=== PATIENT | female | born 1970 | race Caucasian/White ===

== ENCOUNTER 2017-02-24 17:16 | Emergency (ER) | payer OTHER ==
[~2017-02-24] VITALS: Ht 157.5 cm; Wt 71.5 kg
[~2017-02-24 17:16] MED LIST: CYCL-319 PO; HYDR-3498 PO; NAPR-260 PO
[2017-02-24 17:19] VITALS: Ht 157.5 cm; Wt 71.5 kg
--- NOTE | 2017-02-24 18:42 | ERD ---
ER Documentation Chief Complaint Date/Time DATE: 02/24/17 TIME: 18:39 Chief Complaint Complains of a sorethroat x 3 days HPI This is a 46-year-old female presents to the ER with a sore throat for the last 3 days. Patient states she has very painful swallowing and she feels as if there is something in her throat. Patient denies swelling any foreign bodies. She denies any chest pain, shortness of breath. Patient is able to swallow, however it is painful. Had any choking episodes. She does not have any fevers or chills. She does have a runny nose, however does not have a cough. ROS 12 point review of systems was done, all negative except per HPI. Medications Home Meds Active Scripts Ibuprofen* (Motrin*) 600 Mg Tab, 600 MG PO Q6, #30 TAB Prov:MAGDALENA LOYA 02/24/17 Naproxen* (Naprosyn*) 500 Mg Tablet, 500 MG PO BID Y for PAIN AND/OR INFLAMMATION, #20 TAB Prov:MARTINLARY DO 12/26/15 Cyclobenzaprine Hcl* (Cyclobenzaprine Hcl*) 10 Mg Tablet, 10 MG PO TID, #15 TAB Prov:MARTINLARY DO 12/26/15 Hydrocodone Bit-Acetaminophen* ([place]*) 5-325 Mg Tab, 1 TAB PO Q6 Y for PAIN, # 7 TAB Prov:LARY SALAZAR 12/26/15 Reported Medications [None] No Conflict Check 11/15/12 Allergies Allergies: Coded Allergies: Penicillins (Verified Allergy, Unknown, 11/15/12) PMhx/Soc Medical and Surgical Hx: pt denies Medical Hx History of Surgery: Yes (C -SECTION x1, tubal ligation.) Anesthesia Reaction: No Hx Neurological Disorder: No Hx Respiratory Disorders: No Hx Cardiac Disorders: No Hx Psychiatric Problems: No Hx Miscellaneous Medical Probl: No Hx Alcohol Use: No Hx Substance Use: No Hx Tobacco Use: No (COFFEE) Physical Exam Vitals Physical Exam GENERAL: The patient is well-developed, well-nourished, in no acute distress. NECK: Cervical spine is non tender with no step off. Supple, no nuchal rigidity HEENT: Atraumatic. Pupils equal, round and reactive to light. Extraocular muscles are grossly intact. Conjunctivae pink, no discharge. Bilateral tympanic membranes are clear with no evidence of erythema, effusion or dulling of the light reflex. Tonsilar erythema with no exudates or uvular deviation. Clear rhinorrhea. RESPIRATORY: Clear to auscultation bilaterally. There are no rales, wheezes or rhonchi. HEART: Regular rate and rhythm. No murmurs, clicks, rubs or gallops. EXTREMITIES: No clubbing or cyanosis. Full range of motion. Grossly neurovascularly intact. NEUROLOGIC: Alert and oriented. Cranial nerves II through XII are intact. SKIN: There is no rash. The skin is warm and dry. Procedures/MDM This is a 46-year-old female presents to the ER complaining of sore throat and" foreign body sensation in throat." Did have some erythema of the throat, likely viral in etiology. Suspicion for retropharyngeal abscess or peritonsillar abscess is low. Patient did not have any uvular deviation or kissing tonsils on physical examination. In regards to patient's foreign body sensation, there is no evidence of foreign body on soft tissue neck x-ray. Patient is comfortably sitting in exam room with no evidence of respiratory distress or stridor. Patient needs to follow-up with her primary care doctor within 1-2 days return to ER sooner if symptoms worsen. My medical decision making shared with the patient she understands and agrees with plan. Departure Diagnosis: Primary Impression: Sore throat Condition: Stable MAGDALENA LOYA Feb 24, 2017 18:42
--- NOTE | 2017-02-24 19:26 | RADRPT ---
PROCEDURE: Soft tissue of the neck CLINICAL INDICATION: Foreign body sensation and pain. TECHNIQUE: Single lateral view of the neck were performed. COMPARISON: None FINDINGS: Unremarkable pharyngeal structures. Normal oral cavity soft tissues. Unremarkable endolaryngeal stru ctures. Normal soft tissues. No soft tissue swelling. No mass identified. No foreign body identified . Normal osseous structures. Normal bony alignment. No fracture identified. IMPRESSION: No evident retained radiopaque or radiolucent foreign body over the soft tissues of the neck. RPTAT: [facility] Physician Angela Date Time Electronically viewed and signed by Physician Angela on 02/24/2017 19:25 RS/
[2017-02-24] MEDS ORDERED: IBUP-1542 PO (19:50)
[2017-02-24 22:09] VITALS: BP 122/70; PULSE 79; RESP 18; TEMP 98.5
== END 2017-02-24 22:10 | disposition home or self-care (01) ==
LOC: FTE 17:16
DX: J02.9 Acute pharyngitis, unspecified (principal)
CPT/HCPCS: 70360; 87880; Z7502

== ENCOUNTER 2018-10-10 09:32 | Emergency (ER) | payer OTHER ==
[~2018-10-10] VITALS: Ht 154.9 cm; Wt 71.0 kg
[~2018-10-10 09:32] MED LIST changes: -CYCL-319 PO; +CYCL10TA7 PO; +IBUP-1542 PO; -NAPR-260 PO; +NAPR-985 PO
[2018-10-10 09:36] VITALS: Ht 154.9 cm; Wt 71.0 kg
[2018-10-10] MEDS ORDERED: BENZONATATE 100 MG CAP PO ONE (10:30)
[2018-10-10] MEDS ORDERED: IBUPROFEN 800 MG TAB PO ONE (10:30)
[2018-10-10] MEDS ORDERED: IBUP-1542 PO (10:34)
[2018-10-10] MEDS ORDERED: BENZ-6 PO (10:34)
--- NOTE | 2018-10-10 10:36 | ERD ---
ER Documentation Chief Complaint Chief Complaint fever , cough , headache , chest hurts with coughing since monday HPI Patient is a 48-year-old female with diabetes who presents with a cough. The patient said that she has pressure in her chest with cough. She feels tired. She has headache and congestion. Her symptoms have been there for about 1 month. It comes and goes. She has had no fevers. She tried Panadol. Upon review of old medical record the patient has multiple visits with various complaints. Her primary doctor Dr. [place]. ROS All systems reviewed and are negative except as per history of present illness. Medications Home Meds Active Scripts Benzonatate* (Tessalon Per[place]*) 100 Mg Capsule, 100 MG PO Q8H PRN for COUGH, #30 CAP Prov:TANI HAYES MD 10/10/18 Ibuprofen* (Motrin*) 600 Mg Tab, 600 MG PO Q6H PRN for PAIN AND OR ELEVATED TEMP, #30 TAB Prov:TANI HAYES MD 10/10/18 Reported Medications Ergocalciferol (Vitamin D2) (VITAMIN D2) 50,000 Unit Capsule, 85902 UNIT PO Q7D, CAP 10/10/18 Lisinopril* (Lisinopril*) 2.5 Mg Tablet, 2.5 MG PO DAILY, #30 TAB 10/10/18 Atorvastatin Calcium (Atorvastatin Calcium) 10 Mg Tablet, 10 MG PO QHS, #30 TAB 10/10/18 Metformin Hcl* (Metformin Hcl*) 500 Mg Tablet, 500 MG PO WITH BREAKFAST, #30 TAB 10/10/18 Discontinued Reported Medications [None] No Conflict Check 11/15/12 Discontinued Scripts Ibuprofen* (Motrin*) 600 Mg Tab, 600 MG PO Q6, #30 TAB Prov:MAGDALENA LOYA 02/24/17 Naproxen* (Naprosyn*) 500 Mg Tablet, 500 MG PO BID PRN for PAIN AND/OR INFLAMMATION, #20 TAB Prov:LARY SALAZAR DO 12/26/15 Cyclobenzaprine Hcl* (Cyclobenzaprine Hcl*) 10 Mg Tablet, 10 MG PO TID, #15 TAB Prov:LARY SALAZAR DO 12/26/15 Hydrocodone Bit-Acetaminophen* ([place]*) 5-325 Mg Tab, 1 TAB PO Q6 PRN for PAIN, #7 TAB Prov:LARY SALAZAR DO 12/26/15 Allergies Allergies: Coded Allergies: Penicillins (Verified Allergy, Unknown, 10/10/18) PMhx/Soc History of Surgery: Yes (C -SECTION x1, tubal ligation.) Anesthesia Reaction: No Hx Neurological Disorder: No Hx Respiratory Disorders: No Hx Cardiac Disorders: No Hx Psychiatric Problems: No Hx Miscellaneous Medical Probl: No Hx Alcohol Use: No Hx Substance Use: No Hx Tobacco Use: No (COFFEE) FmHx Family History: No diabetes Physical Exam Vitals Vital Signs Date Temp Pulse Resp B/P (MAP) Pulse Ox O2 O2 Flow FiO2 Time Delivery Rate 10/10/18 98.5 88 18 142/84 100 Room Air 11:38 (103) 10/10/18 98.9 92 18 147/84 100 09:36 (105) Physical Exam Const: No acute distress Head: Atraumatic Eyes: Normal Conjunctiva ENT: Normal External Ears, Nose and Mouth. Neck: Full range of motion. No meningismus. Resp: Clear to auscultation bilaterally Cardio: Regular rate and rhythm, no murmurs Abd: Soft, non tender, non distended. Normal bowel sounds Skin: No petechiae or rashes Back: No midline or flank tenderness Ext: No cyanosis, or edema Neur: Awake and alert Psych: Normal Mood and Affect Results 24 hrs Laboratory Tests Test 10/10/18 11:32 POC Beta HCG, Qualitative NEGATIVE Current Medications Medications Dose Sig/Shaniqua Start Time Status Last (Trade) Ordered Route PRN Stop Time Admin Dose Reason Admin Ibuprofen 800 mg ONCE ONCE 10/10/18 DC 10/10/18 (Motrin) PO 10:30 10:30 10/10/18 10:31 Benzonatate 200 mg ONCE ONCE 10/10/18 DC 10/10/18 (Tessalon) PO 10:30 10:30 10/10/18 10:31 Procedures/MDM EKG read by me: Rate/Rhythm: Regular rate and rhythm at a rate of 99 Intervals: Normal Impression: No evidence of ischemia or arrhythmia Chest x-ray negative per radiology. Patient is a 48-year-old female with multiple complaints. I believe she likely has upper respiratory infection. I doubt pneumonia, pneumothorax, pulmonary embolism, or aortic dissection. I doubt acute coronary syndrome. The patient will be discharged with a prescription for Tessalon and ibuprofen. She can return for any worsening symptoms. Departure Diagnosis: Primary Impression: Upper respiratory infection URI type: unspecified URI Qualified Codes: J06.9 - Acute upper respiratory infection, unspecified Condition: Fair Patient Instructions: Uri, Viral, No Abx (Adult) Referrals: JAUN BOSTON Additional Instructions: Llame al doctor nombhavesh ley (Referral Sources) MAANA y zahira michelle ESTEPHANIA PARA DENTRO DE MICHELLE SEMANA. Dgale a la secretaria que nosotros le instruimos hacer esta estephania.Avise o llame si choi condicin se empeora antes de la estephania. TANI HAYES MD October 10, 2018 10:35
[2018-10-10] MEDS ORDERED: LISI2.5T59 PO (10:43)
[2018-10-10] MEDS ORDERED: ATOR10TA65 PO (10:43)
[2018-10-10] MEDS ORDERED: METF500T24 PO (10:43)
[2018-10-10] MEDS ORDERED: ERGO500013 PO (10:44)
[2018-10-10 11:38] VITALS: BP 142/84; PULSE 88; RESP 18
== END 2018-10-10 11:40 | disposition home or self-care (01) ==
LOC: E/R 09:32
DX: J06.9 Acute upper respiratory infection, unspecified (principal); E11.9 Type 2 diabetes mellitus without complications; R07.9 Chest pain, unspecified; Z79.84 Long term (current) use of oral hypoglycemic drugs
CPT/HCPCS: 71045; 81025; 93005; Z7502; Z7610